=== PATIENT | male | born 1970 | race Two or more races ===

== ENCOUNTER 2016-11-27 16:15 | Inpatient (IN) | payer BC, OTHER ==
[~2016-11-27] VITALS: Ht 177.8 cm; Wt 106.6 kg
[2016-11-27 20:30] VITALS: BP 142/84
[2016-11-27] MEDS ORDERED: MAG HYDROX/AL HYDROX/SIMETH 30 ML UDC PO PRN (21:00)
[2016-11-27] MEDS ORDERED: MAGNESIUM HYDROXIDE 30 ML UDC PO PRN (21:00)
[2016-11-27] MEDS ORDERED: ACETAMINOPHEN 325 MG TABLET PO PRN (21:00)
--- NOTE | 2016-11-27 23:55 | NUR ---
GPS/RN NOTE: ADMITTED DIRECTLY FROM [facility], ACCOMPANIED BY 2 MALE PARAMEDICS VIA GURNEY, CAME TO THE UNIT AROUND 2014. PATIENT ADMITTED ON VOLUNTARY BASIS. PATIENT IS AWAKE, ALERT, ORIENTED X3, NO ACUTE DISTRESS NOTED. RESPIRATION EVEN, BREATHING PATTERN NON-LABORED, NO ACUTE DISTRESS NOTED. SHOWS NO S/S OF PAIN AT THIS TIME, PATIENT IS PLEASANT, COOPERATIVE, DEPRESSED, ANXIOUS. SKIN WARM DRY AND INTACT. PATIENT IS AMBULATORY. BELONGINGS WERE INVENTORIED AND CHECKED FOR CONTRABAND. PATIENT IS AMBULATORY. SKIN WARM DRY AND INTACT. REFUSED FLU AND PNEUMONIA VACCINE, DOES NOT BELIEVE WITH VACCINE. VALUABLES CHECKED IN TO SAFE. FAMILY MADE AWARE OF PATIENT'S ADMISSION TO THE UNIT. DR. CHACON WILL BE PAGED FOR [email or web address]. PATIENT HAS 1:1 SITTER FOR SAFETY AND BEHAVIOR. BED LOCKED AND PLACED ON LOWEST POSITION. WILL CONTINUE TO MONITOR Q 15 MINS. TO MAINTAIN SAFETY.
[2016-11-28] MEDS ORDERED: TEMAZEPAM 15 MG CAPSULE ONE (00:17)
[2016-11-28] MEDS: TEMAZEPAM 7.5 MG CAPSULE PO PRN ×2 (00:31→20:52)
--- NOTE | 2016-11-28 00:32 | NUR ---
GPS/RN NOTE: PATIENT STILL AWAKE, OFFERED TEMAZEPAM 15 MG CAP, PATIENT TOOK MEDICATION FOR SLEEP.
[2016-11-28] MEDS ORDERED: ESCI20TA PO (00:53)
[2016-11-28] MEDS ORDERED: BUSP15TA3 PO (00:53)
[2016-11-28] MEDS ORDERED: IBUP-1482 PO (01:11)
[2016-11-28] MEDS ORDERED: AMOX500C2 PO (01:11)
[2016-11-28] MEDS ORDERED: CHLO473M3 PO (01:11)
[2016-11-28] MEDS ORDERED: HYDR-3976 PO (01:11)
--- NOTE | 2016-11-28 06:36 | NUR ---
GPS/RN NOTE: HALIMA'S FATHER CALLED THE UNIT, AWARE THAT HIS SON IS ADMITTED AT [facility]
--- NOTE | 2016-11-28 06:37 | NUR ---
GPS/RN NOTE: PAGED DR. COLES FOR MED RECON.
[2016-11-28 08:00] VITALS: BP 132/94
[2016-11-28 08:26] LABS: ALBUMIN 3.6 g/dL (3.4-5.0); BILIRUBIN,TOTAL 0.4 mg/dL (0.2-1.0); CALCIUM, SERUM 8.4 mg/dL (8.5-10.1); CREATININE 0.9 mg/dL (0.6-1.3); POTASSIUM 3.7 mmol/L (3.5-5.1); TOTAL PROTEIN, SERUM 7.2 g/dL (6.4-8.2)
[2016-11-28] MEDS ORDERED: [UNRECOGNIZED DRUG - OTHER] PO PRN (11:00)
[2016-11-28] MEDS ORDERED: ACETAMINOPHEN PO PRN (11:00)
[2016-11-28] MEDS ORDERED: HYDROCODONE BIT PO PRN (11:00)
[2016-11-28] MEDS ORDERED: IBUPROFEN 400 MG TABLET PO PRN (11:30)
[2016-11-28] MEDS ORDERED: HYDROCODONE/APAP 5/325MG 1 EACH TABLET PO PRN (11:30)
[2016-11-28] MEDS: clonazePAM 0.5 MG TABLET PO PRN ×2 (11:41→22:10)
[2016-11-28] MEDS ORDERED: AMOXICILLIN TRIHYDRATE 500 MG CAPSULE PO SCH (13:00)
[2016-11-28] MEDS: AMOXICILLIN TRIHYDRATE 250 MG CAPSULE PO SCH ×2 (14:12→18:00)
--- NOTE | 2016-11-28 15:11 | NUR ---
Initial discharge plan: Pt. lived [place] family [place] [address] [place] [id number] and wants to return. Pt. initially was supposed to discharge to an inpatient treatment program, but now does not want to go as he did not plan to come here. SW will follow up with MD and pt and will help for safe and proper discharge.
--- NOTE | 2016-11-28 15:14 | NUR ---
UR update: SW received a voicemail from Yashira Connell disaster recovery manager at [facility] [phone] FAX# [phone] authorizing the patient through today with a review due , 11/29/16. AUTHORIZATION#[id number]
[2016-11-28 16:00] VITALS: BP 97/80
[2016-11-28] MEDS: CHLORHEXIDINE GLUCONATE 15 ML UDC MM SCH (17:00)
[2016-11-28 19:55] VITALS: BP 115/87
[2016-11-28] MEDS: DIVALPROEX SODIUM 500 MG TABLET.DR PO SCH (20:52)
[2016-11-28 22:32] VITALS: BP 115/87
[2016-11-29 08:34] VITALS: BP 136/74
[2016-11-29] MEDS: ESCITALOPRAM OXALATE (10 MG) 10 MG TABLET PO SCH (09:29)
[2016-11-29] MEDS: CHLORHEXIDINE GLUCONATE 15 ML UDC MM SCH ×2 (09:29→16:59)
[2016-11-29] MEDS: DIVALPROEX SODIUM 500 MG TABLET.DR PO SCH ×2 (09:30→20:51)
[2016-11-29] MEDS: busPIRone 5 MG TABLET PO SCH ×3 (09:30→16:59)
[2016-11-29] MEDS: AMOXICILLIN TRIHYDRATE 250 MG CAPSULE PO SCH ×3 (09:34→16:59)
--- NOTE | 2016-11-29 11:30 | NUR ---
SW spoke with pt regarding going to the treatment center that has accepted him and pt. agrees at this time. CHAVEZ called Thang from the center [phone] to speak with the patient and pt. agreed to speak.
--- NOTE | 2016-11-29 15:56 | NUR ---
CHAVEZ spoke with Vijay from [facility] [phone] who was notified that pt. will agree to go to rehab. Vijay said he will make arrangements for transfer once he knows the discharge date.
--- NOTE | 2016-11-29 15:58 | NUR ---
CHAVEZ spoke with pt's father, David [phone] who is concerned about the patient, as yesterday, pt. called and said he was going to steal a car once out of the hospital and was going to kill himself. CHAVEZ explained that at this point there is no discharge date set yet and pt. agrees at this point to go to treatment center when discharged.
--- NOTE | 2016-11-29 16:02 | NUR ---
UR update: CHAVEZ faxed clinicals to Yashira Connell manager business planning at [facility] [phone] FAX# [phone] . AUTHORIZATION#[id number]
[2016-11-29 16:39] VITALS: BP 128/86
[2016-11-29] MEDS: clonazePAM 0.5 MG TABLET PO PRN (19:36)
[2016-11-29 19:54] VITALS: BP 130/89
[2016-11-29 20:00] VITALS: BP 135/89
[2016-11-29] MEDS: TEMAZEPAM 7.5 MG CAPSULE PO PRN (20:51)
[2016-11-30 08:00] VITALS: BP 126/67
[2016-11-30] MEDS: AMOXICILLIN TRIHYDRATE 250 MG CAPSULE PO SCH ×3 (08:39→17:12)
[2016-11-30] MEDS: DIVALPROEX SODIUM 500 MG TABLET.DR PO SCH (08:39)
[2016-11-30] MEDS: ESCITALOPRAM OXALATE (10 MG) 10 MG TABLET PO SCH (08:39)
[2016-11-30] MEDS: busPIRone 5 MG TABLET PO SCH ×3 (08:39→17:12)
[2016-11-30] MEDS: CHLORHEXIDINE GLUCONATE 15 ML UDC MM SCH ×2 (08:39→17:12)
--- NOTE | 2016-11-30 10:14 | NUR ---
Discharge note: pt will discharge today to the substance abuse treatment center arranged by [facility] Hydrogeologist, Vijay [phone] and father , David [phone] has been notified. Pt. will be picked up at 4:00PM. Requested the information about the treatment center from Vijay but have not gotten it so far. Pt. agrees with the discharge plan, denies suicidal/homicidal ideations. Discharge paperwork has been signed. Will update with facility information once available. Addendum: 11/30/16 at 1204 by ZORAIDA BYRNE [address] [address]
--- NOTE | 2016-11-30 11:35 | NUR ---
PT. WITH AN ORDER TO D/C HOLD AND D/C HOME. PT. WITHOUT DISTRESS, DENIES SUICIDAL AND HOMICIDAL. TO FOLLOW UP WITH PSYCH AND MEDICAL DOCTORS.
[2016-11-30 16:00] VITALS: BP 138/83
--- NOTE | 2016-11-30 17:48 | NUR ---
GPS/RN PT REFUSED PICTURES BEING ANXIOUS REG PENDING DISCHARGE.
--- NOTE | 2016-11-30 18:07 | NUR ---
GPS/RN PT ACCOMPANIED TO PRIVATE TRANSPORTATION WAITING AT THE MAIN HOSPITAL ENTRANCE. PRESCRIPTIONS GIVEN AND UNDERSTOOD, PROPERTY AND MEDICATIONS RETURNED. NO SI OR HI A THE TIME OF D/C NOTED
== END 2016-11-30 18:07 | disposition home or self-care (01) | DRG 885 ==
LOC: GPS 19:52
PROVIDERS: ADMIT Psychiatry & Neurology Psychiatry; ATTEND Internal Medicine
DX: F39 Unspecified mood [affective] disorder (principal); F13.20 Sedative, hypnotic or anxiolytic dependence, uncomplicated; F12.10 Cannabis abuse, uncomplicated; F41.9 Anxiety disorder, unspecified
CPT/HCPCS: 36415; 80053-TC; 87081-TC